=== PATIENT | male | born 1995 | race Caucasian/White ===

== ENCOUNTER 2017-05-02 00:51 | Emergency (ER) | payer SELFPAY ==
[2017-05-02] MEDS: IBUPROFEN 600 MG TAB PO (05:24)
== END 2017-05-02 05:50 | disposition home or self-care (01) ==
LOC: FTE 00:51
DX: S29.011A Strain of muscle and tendon of front wall of thorax, initial encounter (principal); F17.210 Nicotine dependence, cigarettes, uncomplicated; X58.XXXA Exposure to other specified factors, initial encounter; Y92.9 Unspecified place or not applicable
CPT/HCPCS: 99283; 99283-25